=== PATIENT | male | born 1980 | race Caucasian/White ===

== ENCOUNTER 2017-10-06 09:08 | Emergency (ER) | payer OTHER | END 2017-10-06 11:27 | disposition left against medical advice (07) | LOC: ERS 09:08 | DX: Z53.21 Procedure and treatment not carried out due to patient leaving prior to being seen by health care provider (principal) ==

== ENCOUNTER 2018-11-20 12:43 | Emergency (ER) | payer OTHER ==
[2018-11-20 13:45] LABS: Bilirubin Negative (Negative); Blood, Urine Negative (Negative); Clarity CLEAR (Clear); Glucose, Urine (Dipstick) Negative (Negative); Leukocyte Small (Negative); Nitrite Negative (Negative); Protein, Urine (Dipstick) Negative (Neg-Trace); Specific Gravity, Urine 1.021 (1.002-1.036); Urobilinogen 0.2 mg/dL (0.2-1.0)
[2018-11-20 13:49] LABS: Bacteria/HPF None Seen HPF (None Seen); Hyaline Casts/LPF 0-3 HYALINE CAST LPF (0-3 Hyaline); Pathc Cast-AUWi Flag 0.13 (0-2.49); RBC/HPF 0-3 HPF (0-3); Squamous Epithelial 0-3 HPF (0-3)
--- NOTE | 2018-11-20 14:13 | ULT ---
US Testicular W Doppler History: [Testicular pain] Comparison: None. Findings: Real-time grayscale, color, and spectral analysis of the testicles was performed. The testi cular echotexture is normal bilaterally. Left testicle measures 3.7 x 2.1 x 2.8 cm and right testicle measures 3.4 x 2 x 2.8 cm. Left epididymis is mildly enlarged and heterogeneous with adjacent varico lesli. Impression: Left varicocele. Normal flow and echotexture to both testicles without mass.
[2018-11-20] MEDS ORDERED: Lidocaine 1% (PF) 30 ML VIAL ONE (14:30)
[2018-11-20] MEDS ORDERED: cefTRIAXone\\ROCEPHIN 250 MG VIAL ONE (14:30)
[2018-11-21 18:06] LABS: Chlam.trachomatis by PCR,Urine Not Detected (NotDetected)
== END 2018-11-20 14:35 | disposition home or self-care (01) ==
LOC: ERS 12:43
DX: N50.82 Scrotal pain (principal); N34.2 Other urethritis; F90.9 Attention-deficit hyperactivity disorder, unspecified type
CPT/HCPCS: 76870; 81003; 81015; 87086; 87491; 87591; 93976; 96372; J0696; J2001